=== PATIENT | female | born 1965 | race Caucasian/White ===

== ENCOUNTER → 2017-10-22 15:58 | Outpatient (CLI) | payer OTHER, SELFPAY ==
--- NOTE | 2017-10-22 16:01 | DI.RAD.S_ITS ---
PROCEDURE: XR WRIST LT MIN 3V INDICATIONS: left wrist pain - radial side TECHNIQUE: 4 views of the wrist were acquired. COMPARISON: None. FINDINGS: Bones: There is lucency seen extending through the proximal and mid pole of the scaphoid and scaphoid fracture cannot be excluded. A small erosion is seen along the ulnar aspect of the lunate. Mild radiocarpal joint narrowing.. No suspicious bony lesions. Scaphoid view: Possible scaphoid fracture. Soft tissues: No suspicious soft tissue calcifications. IMPRESSION: 1. Lucency extending to the proximal and mid aspect of the scaphoid and scaphoid fracture cannot be excluded. Recommend correlation to point tenderness and if indicated followup examination in 10-14 days could be performed. 2. Bone erosion involving the ulnar aspect of the lunate and inflammatory arthritic change cannot be excluded. Correlate clinically. Dictated by: Segundo MYLES Interpreted: Flaquito Mccrary MD on 10/22/2017 at 17:17 Approved by: Flaquito Mccrary M.D. on 10/23/2017 at 12:24
== END ==
PROVIDERS: Family Provider Physician Assistant; PCP Physician Assistant; Visit Provider Physician Assistant
DX: M25.532 Pain in left wrist (principal)
CPT/HCPCS: 73110

== ENCOUNTER → 2017-10-25 11:54 | Outpatient (CLI) | payer OTHER, SELFPAY ==
[2017-10-25 12:20] LABS: Add Manual Diff / Slide Review NO; Basophils Percent Auto 1.3 % (0-2); Eosinophils Percent Auto 4.6 % (2-4); Hematocrit 33.7 % (36-46); Hemoglobin 10.7 g/dL (12.0-16.0); Lymphocytes Percent Auto 42.6 % (25-40); Mean Corpuscular HGB Conc 31.8 % (30-36); Mean Corpuscular Hemoglobin 18.5 PG (26-34); Mean Corpuscular Volume 58.4 fL (80-100); Monocytes Percent Auto 8.1 % (3-14); Neutrophils Absolute Auto 1700 /uL (3000-5900); Neutrophils Percent Auto 43.4 % (50-75); Platelet Count 245 X10^3/uL (150-400); Red Blood Cell Count 5.77 X10^6/uL (4.0-5.2); Red Cell Distribution Width 15.5 % (11.6-14.8); White Blood Cell Count 3.8 X10^3/uL (4.5-11.0)
[2017-10-25 12:36] LABS: Alanine Aminotransferase 20 IU/L (9-52); Albumin 4.3 g/dL (3.5-5.0); Albumin Globulin Ratio 1.6 (1.0-2.8); Alkaline Phosphatase 56 U/L (38-126); Aspartate Aminotransferase 20 IU/L (14-36); Blood Urea Nitrogen 16 mg/dL (7-17); Calcium 9.7 mg/dL (8.4-10.2); Carbon Dioxide 30 mmol/L (22-32); Chloride 104 mmol/L (98-107); Cholesterol 170 mg/dL (140-199); Estimated Glomerular Filt Rate > 60.0 mL/min (>60); Globulin 2.7 g/dL (1.7-4.1); Glucose 92 mg/dL (70-100); HDL Cholesterol 61 mg/dL (40-60); HEMOLYSIS < 15 (0-50); LDL Cholesterol Calculated 94 mg/dL (<100); Potassium 4.2 mmol/L (3.4-5.1); Sodium 144 mmol/L (137-145); Triglycerides 74 mg/dL (35-150)
[2017-10-25 12:37] LABS: Hypochromasia 1+; Microcytosis 2+
[2017-10-25 13:10] LABS: Ferritin 59.2 ng/mL (11.1-264)
[2017-10-25 13:29] LABS: HEMOLYSIS < 15 (0-50); Iron 86 ug/dL (37-170)
[2017-10-25 13:40] LABS: Percent Iron Saturation 30 % (15-50); Total Iron Binding Capacity 289 ug/dL (265-497); Transferrin 237 mg/dL (206-381)
[2017-10-25 13:50] LABS: Free T3, Triiodothyronine Free 4.81 pg/mL (2.77-5.27); Free T4, Direct Thyroxine 1.32 ng/dL (0.78-2.19); Triiodothryronine T3 Uptake 38.1 % (23.5-40.5)
[2017-10-25 14:03] LABS: Thyroid Stimulating Hormone < 0.02 uIU/mL (0.47-4.68)
[2017-10-29 15:54] LABS: Anti Thyroglobulin Antibody < 1 IU/mL (< 2); Thyroid Peroxidase Antibodies < 1 IU/mL (< 9)
[2017-10-31 15:12] LABS: Triiodothyronine T3 Reverse 20 ng/dL (8-25)
== END ==
PROVIDERS: PCP Physician Assistant; Visit Provider Naturopath
DX: E03.9 Hypothyroidism, unspecified (principal); R53.83 Other fatigue; M25.50 Pain in unspecified joint
CPT/HCPCS: 36415; 80053; 80061; 82728; 83036; 83540; 83550; 84439; 84443; 84479; 84481; 84482; 85025; 86376; 86800

== ENCOUNTER → 2017-10-30 11:14 | Outpatient (CLI) | payer OTHER, SELFPAY ==
--- NOTE | 2017-10-30 11:15 | DI.MRI.S_ITS ---
PROCEDURE: MR WRIST LT WO CON INDICATIONS: Abnormal Xray left wrist; left wrist pain TECHNIQUE: Noncontrast coronal proton density fast spin echo and T2 fast spin echo with fat saturation; coronal 3-D gradient echo, axial T1 spin echo and T2 fast spin echo with fat saturation, sagittal T1 spin echo through the wrist. COMPARISON: [facility], CR, XR WRIST LT MIN 3V, 10/22/2017, 15:41. FINDINGS: Image quality: Excellent. Bones and cartilage: The carpal bones are normally aligned. No bone marrow contusions or fractures. Small intraosseous cyst in lunate is seen. Small sclerotic focus involving proximal scaphoid is also noted with no surrounding marrow edema or periosteal reaction likely represent benign process such as bone island. No evidence for avascular necrosis. Overlying cartilage surfaces appear normal. Carpal ligaments: The scapholunate and lunotriquetral ligaments appear intact. In the absence of intra-articular contrast, the extrinsic carpal ligaments are not well identified. On sagittal images, the pisohamate ligament appears intact. Triangular fibrocartilage complex: The triangular fibrocartilage appears intact. The adjacent meniscal homolog appears normal in the absence of intra-articular contrast. The extensor carpi ulnaris tendon is normal in location and morphology. Tendons and soft tissues: The carpal tunnel structures appear normal, including the median nerve. The ulnar nerve appears normal within Guyon's canal. Examination of extensor tendon shows thickening of extensor pollicis brevis and abductor pollicis longus tendons with surrounding fluid adjacent to radial styloid and the proximal carpal suggestive of tenosynovitis and possible low-grade intrasubstance partial-thickness tear. No full-thickness tendon rupture. Rest of extensor tendons are intact. No soft tissue ganglion cysts. IMPRESSION: 1. No carpal fracture or dislocation. No marrow edema. Possible small bone island in proximal scaphoid. Small intraosseous cyst within the lunate. 2. Tenosynovitis and intrasubstance partial-thickness tear involving extensor pollicis brevis and abductor pollicis longus tendons adjacent to radial styloid and proximal scaphoid. No full-thickness tendon rupture. Rest of the wrist tendons and ligaments are grossly intact. Dictated by: Pino Waldron M.D. on 10/30/2017 at 13:26 Approved by: Pino Waldron M.D. on 10/30/2017 at 17:06
== END ==
PROVIDERS: Family Provider Physician Assistant; PCP Physician Assistant; Visit Provider Physician Assistant
DX: M25.532 Pain in left wrist (principal); M25.432 Effusion, left wrist; R93.7 Abnormal findings on diagnostic imaging of other parts of musculoskeletal system; M85.632 Other cyst of bone, left forearm
CPT/HCPCS: 73221

== ENCOUNTER → 2018-04-15 10:26 | Outpatient (CLI) | payer OTHER, SELFPAY ==
[2018-04-15 11:27] LABS: Hematocrit 32.4 % (36-46); Hemoglobin 10.5 g/dL (12.0-16.0); Mean Corpuscular HGB Conc 32.3 % (30-36); Mean Corpuscular Hemoglobin 18.3 PG (26-34); Mean Corpuscular Volume 56.5 fL (80-100); Platelet Count 245 X10^3/uL (150-400); Red Blood Cell Count 5.72 X10^6/uL (4.0-5.2); Red Cell Distribution Width 17.1 % (11.6-14.8); White Blood Cell Count 4.7 X10^3/uL (4.5-11.0)
[2018-04-15 11:28] LABS: Add Manual Diff / Slide Review YES
[2018-04-15 11:29] LABS: Hemoglobin A1C% w Est Avg Glu 4.8 % (4.0-6.0)
[2018-04-15 11:42] LABS: HEMOLYSIS < 15 (0-50); Iron 89 ug/dL (37-170)
[2018-04-15 11:44] LABS: Alanine Aminotransferase 22 IU/L (9-52); Albumin 4.5 g/dL (3.5-5.0); Albumin Globulin Ratio 1.6 (1.0-2.8); Alkaline Phosphatase 65 U/L (38-126); Aspartate Aminotransferase 27 IU/L (14-36); BUN Creatinine Ratio 18.9 (6-22); Bilirubin Total 1.2 mg/dL (0.2-1.3); Blood Urea Nitrogen 17 mg/dL (7-17); Calcium 9.7 mg/dL (8.4-10.2); Carbon Dioxide 27 mmol/L (22-32); Chloride 103 mmol/L (98-107); Cholesterol 199 mg/dL (140-199); Estimated Glomerular Filt Rate > 60.0 mL/min (>60); Globulin 2.9 g/dL (1.7-4.1); Glucose 91 mg/dL (70-100); HDL Cholesterol 68 mg/dL (40-60); HEMOLYSIS < 15 (0-50); LDL Cholesterol Calculated 117 mg/dL (<100); Potassium 3.5 mmol/L (3.4-5.1); Sodium 140 mmol/L (137-145); Total Protein 7.4 g/dL (6.3-8.2); Triglycerides 69 mg/dL (35-150)
[2018-04-15 11:45] LABS: Vitamin D 25 Hydroxy (D3) 42.9 ng/mL (30.0-100.0)
[2018-04-15 11:47] LABS: High Sensitivity CRP - Cardiac 0.8 mg/L (1.0-3.0)
[2018-04-15 11:52] LABS: Percent Iron Saturation 29 % (15-50); Total Iron Binding Capacity 302 ug/dL (265-497); Transferrin 242 mg/dL (206-381)
[2018-04-15 12:00] LABS: Free T3, Triiodothyronine Free 4.16 pg/mL (2.77-5.27); Free T4, Direct Thyroxine 1.08 ng/dL (0.78-2.19)
[2018-04-15 12:08] LABS: Neutrophils Absolute Manual 2585 /uL (3000-5900); Total Cells Counted 100
[2018-04-15 12:10] LABS: Anisocytosis 1+; Ovalocytes 1+
[2018-04-15 12:13] LABS: Thyroid Stimulating Hormone < 0.02 uIU/mL (0.47-4.68)
[2018-04-15 12:16] LABS: Ferritin 51.5 ng/mL (11.1-264)
[2018-04-16 13:59] LABS: Homocysteine 8.1 umol/L (< 10.4)
[2018-04-16 14:13] LABS: Glucose-6-Phosphate Dehydrogen 20.6 U/g Hgb (7.0-20.5)
[2018-04-17 18:29] LABS: 1 25 Dihydroxy Vitamin D 58 pg/mL (18-72)
== END ==
PROVIDERS: PCP Physician Assistant; Visit Provider Naturopath
DX: R53.83 Other fatigue (principal); B97.89 Other viral agents as the cause of diseases classified elsewhere; E63.9 Nutritional deficiency, unspecified; E34.9 Endocrine disorder, unspecified; R51 Headache
CPT/HCPCS: 36415; 80053; 80061; 82306; 82652; 82728; 82955; 83036; 83090; 83540; 83550; 84439; 84443; 84481; 85025; 86140

== ENCOUNTER 2019-11-29 15:13 | Emergency (ER) | payer OTHER, SELFPAY ==
[2019-11-29] VITALS (11 sets, daily range): BP systolic 94–122; BP diastolic 57–66; PULSE 65–89; RESP 16–18; TEMP 36.9; O2SAT 97–100; BMI 19.7
--- NOTE | 2019-11-29 16:45 | ED_ITS ---
HPI - SOB/Dyspnea <JOHN De León - Last Filed: 11/30/19 00:52> General Chief Complaint: Shortness of Breath/Dyspnea Stated Complaint: feel awful,head ache, nausea, trouble breathing Time Seen by Provider: 11/29/19 16:23 Source: patient Mode of arrival: Wheelchair Limitations: no limitations History of Present Illness HPI Narrative: This is a 54-year-old female, nonsmoker, who has history of hyper and hypothyroidism presents to ED with multiple chief complains she reports has been fatigue and has headache for last several months. Today she additionally has nausea, photophobia, and frontal headache radiating to mid posterior head. Patient felt dyspnea and checked home O2 pulse ox and he was reading as 70s in room air but usually it runs 99-100%. She denies history of frequent migraine headache but once her life. She thought she was having heart attack at home and became very concerned and decided to come to ED for an evaluation and states had chest and back tightness. Patient reports she is under lots of stress and worked greater than 80 hours last week. 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 She reports feels dehydrated. Patient denies fever but reports chills and loose stools. Patient denies sore throat, persistent coughing. Patient denies unusual rashes. She reports was lightheaded and she often has periumbilical discomfort which has not been changed. She contributes her abdominal pain to depends on what she eats. LMP several years ago and in menopausal state. Offered pain medication such as Toradol and antinausea medication and Protonix but declines medications except IV fluids at this time. Related Data Previous Rx's Medication Instructions Recorded thyroid (pork) 60 mg tablet See Rx Instructions .ROUTE 04/08/19 .COMPLEX #60 tablet Allergies Allergy/AdvReac Type Severity Reaction Status Date / Time Penicillins [PENICILLINS] Allergy Unknown my mother Verified 04/09/19 13:36 said I had convulsions when I was a baby. Review of Systems <JOHN De León - Last Filed: 11/30/19 00:52> Review of Systems Narrative: General: See HPI HEENT: Denies sinus pain, ear pain, sore throat, difficulty swallowing, (+) dizziness. Respiratory: See HPI Cardiovascular: The HPI Gastrointestinal: Denies (+) nausea, vomiting, (+) periumbilical abdominal pain, (+) loose stools but no diarrhea, constipation, melena. : Denies dysuria, frequency, incontinence, hematuria, urinary retention. Musculoskeletal: Denies weakness, joint pain or bony pain. Skin: Denies rash, skin lesions, or other. Neurologic: Denies weakness, (+) headache, numbness, change in speech, confu noemi, seizures, incoordination. Psychiatric: Reports under increased stress from work. 12-point review of systems is negative except for those stated above. Patient History <JOHN De León - Last Filed: 11/30/19 00:52> Medical History GERD (gastroesophageal reflux disease) (Acute) Hyperthyroidism (Acute) Social History Smoking Status: Never smoker second hand exposure: No alcohol intake: never substance use type: does not use Smoking Status: Never smoker alcohol intake frequency: 0-2 drinks per day Substance Use Type: does not use Exam <JOHN De León - Last Filed: 11/30/19 00:52> Narrative Exam Narrative: GEN: Alert, oriented x 3, fatigue and thin appearing but in no acute distress and nontoxic appearing female appears to be younger than stated age, resting in dark due to photophobia. Head: Normal cephalic, atraumatic. No scalp or temporal tenderness, palpable mass or rash. EYES: Pupils are equal, round, and reactive to light and accommodation. Extraocular muscles are intact bilaterally. There is no subconjunctival hemorrhage, exudate and sclera non-icteric. ENT: Hearing grossly intact. Nose without bleeding, purulent discharge or deviation. Facial sinuses nontender to palpate. Mucous membrane dry, no mucosal lesion. Throat without erythema, tonsillar hypertrophy or exudate. Uvula in midline, airway patent. Neck: Trachea in midline. No JVD, non-tender without lymphadenopathy. No masses or thyroid megaly. Supple and no meningeal signs. CARDIAC: Normal regular rate and rhythm without murmurs, gallops, or rubs. No chest wall tenderness. No peripheral edema, cyanosis or pallor. Capillary refill is less than 2 seconds. RESPIRATORY: Lungs are clear to auscultate bilaterally. No cough, wheezes, rales, or rhonchi. No stridor, respiratory distress, increase work of breathing, or accessary muscle used. ABD: Abdomen soft and non-distended with mild tenderness to palpate in periumbilical region. No guarding or rebound tenderness to palpate. Bowel sounds are normal in all 4 quadrants. There is no palpable masses or organo megaly. EXT: Full painless ROM of all extremities with no loss of sensation, strength, effusion or edema. SKIN: Warm, dry, normal color for patient. No erythema, lesions or rash over visible areas. BACK: Nontender without deformity or crepitance. No flank tenderness. NEUROLOGICAL: Alert and oriented to place, time and person. Sensation and motor function intact bilaterally. No facial droops, dysphasia. PSYCHIATRIC: Good judgement and reason, without hallucinations, abnormal affect or abnormal behaviors during the examination. Patient is not suicidal. Initial Vital Signs Initial Vital Signs: Vital Signs Temperature 98.4 F 11/29/19 15:25 Pulse Rate 73 11/29/19 15:25 Respiratory Rate 16 11/29/19 15:25 Blood Pressure 122/62 11/29/19 15:25 Pulse Oximetry 100 11/29/19 15:25 <Annika Slade DO - Last Filed: 12/05/19 17:27> Initial Vital Signs Initial Vital Signs: Vital Signs Temperature 98.4 F 11/29/19 15:25 Pulse Rate 73 11/29/19 15:25 Respiratory Rate 16 11/29/19 15:25 Blood Pressure 122/62 11/29/19 15:25 Pulse Oximetry 100 11/29/19 15:25 Scores <[facility] - Last Filed: 11/30/19 00:52> GCS [place] coma scale eye opening: Spontaneous [place] coma scale verbal response: Orientated Emilie coma scale motor response: Obey commands [place] coma scale total score: 15 HEART Score Heart Score history: Slightly Suspicious Heart Score EKG: Normal Heart Score Age: 45-64 years old Heart Score risk factors: No known risk factors Heart Score troponin: < or = to normal limit Heart Score Total: 1 qSOFA Altered Mental Status (GCS <15): No Respiratory rate greater than/equal to 22: No Systolic blood pressure less than or equal to 100: No qSOFA Total: 0 0-1 Not High Risk 1-3 High risk Wells' Criteria for PE Clinical signs and symptoms of DVT: No PE is #1 Dx or equally likely: No Heart rate > 100: No Immobilization at least 3 days or surg in previous 4 weeks: No History of PE or DVT: No Hemoptysis: No Malignancy w/Treatment within 6 months or palliative: No Wells' PE Score total: 0 Course <Mike Ritika-JOHN Byers - Last Filed: 11/30/19 00:52> Orders Ordered: Discontinued Medications Acetaminophen (Tylenol) 650 mg PO NOW ONE Stop: 11/29/19 18:29 Last Admin: 11/29/19 18:32 Dose: 650 mg Documented by: NELY Sodium Chloride (Normal Saline 0.9%) 1,000 mls @ 1,000 mls/hr IV BOLUS ONE Stop: 11/29/19 17:41 Last Infusion: 11/29/19 18:02 Dose: 0 mls/hr Documented by: Admin: 11/29/19 17:02 Dose: 1,000 mls/hr Documented by: NELY Ketorolac Tromethamine (Toradol) 15 mg IV NOW ONE Stop: 11/29/19 18:29 Last Admin: 11/29/19 18:33 Dose: 15 mg Documented by: NELY Reevaluation(s) Reevaluation #1: Patient reports headache has improved mildly. Informed patient on normal kidney function test. Offered patient with medications for headaches and she accepted. Time: 18:25 Vital Signs Vital signs: Vital Signs - 8 hr 11/29/19 16:30 11/29/19 17:00 11/29/19 17:30 Pulse Rate 74 67 65 Respiratory Rate Blood Pressure 94/57 L 102/61 115/63 Pulse Oximetry 98 99 100 11/29/19 18:00 11/29/19 18:27 11/29/19 19:21 Pulse Rate 69 89 Respiratory Rate Blood Pressure 105/58 L 108/64 Pulse Oximetry 99 99 11/29/19 19:51 11/29/19 20:08 Pulse Rate 71 83 Respiratory Rate 18 17 Blood Pressure 108/64 117/66 Pulse Oximetry 100 99 <Annika Slade DO - Last Filed: 12/05/19 17:27> Orders Ordered: Discontinued Medications Acetaminophen (Tylenol) 650 mg PO NOW ONE Stop: 11/29/19 18:29 Last Admin: 11/29/19 18:32 Dose: 650 mg Documented by: NELY Sodium Chloride (Normal Saline 0.9%) 1,000 mls @ 1,000 mls/hr IV BOLUS ONE Stop: 11/29/19 17:41 Last Infusion: 11/29/19 18:02 Dose: 0 mls/hr Documented by: Admin: 11/29/19 17:02 Dose: 1,000 mls/hr Documented by: NELY Ketorolac Tromethamine (Toradol) 15 mg IV NOW ONE Stop: 11/29/19 18:29 Last Admin: 11/29/19 18:33 Dose: 15 mg Documented by: NELY Vital Signs Vital signs: Vital Signs - 8 hr 11/29/19 16:30 11/29/19 17:00 11/29/19 17:30 Pulse Rate 74 67 65 Respiratory Rate Blood Pressure 94/57 L 102/61 115/63 Pulse Oximetry 98 99 100 11/29/19 18:00 11/29/19 18:27 11/29/19 19:21 Pulse Rate 69 89 Respiratory Rate Blood Pressure 105/58 L 108/64 Pulse Oximetry 99 99 11/29/19 19:51 11/29/19 20:08 Pulse Rate 71 83 Respiratory Rate 18 17 Blood Pressure 108/64 117/66 Pulse Oximetry 100 99 MDM - SOB/Dyspnea <Mike JOHN Cardoza - Last Filed: 11/30/19 00:52> Differential Diagnosis Differential diagnosis: Likely pulmonary embolism and other (Covid, pneumonia, pneumothorax, electrolyte imbalance, hyper/hypothyroidism, dehydration, anemia, GERD, cholecystitis, pancreatitis, UTI, meningitis, migraine headache) Medical Records Attestation: I reviewed the patient's medical records. Lab Data Attestation: I reviewed the patient's lab results. Result diagrams: 11/29/19 15:40 11/29/19 15:40 Labs: Lab Results 11/29/19 11/29/19 11/29/19 Range/Units 15:40 15:40 15:40 WBC 8.6 (4.5-11.0) X10^3/uL RBC 5.61 H (4.0-5.2) X10^6/uL Hgb 10.4 L (12.0-16.0) g/dL Hct 33.3 L (36-46) % MCV 59.3 L (80-100) fL MCH 18.6 L (26-34) PG MCHC 31.3 (30-36) % RDW 16.1 H (11.6-14.8) % Plt Count 269 (150-400) X10^3/uL Neut % (Auto) 76.0 H (50-75) % Lymph % (Auto) 17.1 L (25-40) % Alpine % (Auto) 5.8 (3-14) % Eos % (Auto) 0.8 L (2-4) % Baso % (Auto) 0.3 (0-2) % Neut # (Auto) 6500 (3191-9340) /uL Lymph # (Auto) 1500 (4776-6508) /uL Alpine # (Auto) 500 (0-900) /uL Eos # (Auto) 100 (0-450) /uL Baso # (Auto) 0 (0-100) /uL RBC Morphology See below Anisocytosis 1+ H Microcytosis 2+ H D-Dimer < 200 (<230) ng/mL Sodium 137 (137-145) mmol/L Potassium 3.8 (3.4-5.1) mmol/L Chloride 104 (98-107) mmol/L Carbon Dioxide 25 (22-32) mmol/L BUN 21 H (7-17) mg/dL Creatinine 0.83 (0.52-1.04) mg/dL Estimated GFR > 60.0 (>60) mL/min BUN/Creatinine Ratio 25.3 H (6-22) Glucose 99 (70-100) mg/dL Calcium 9.5 (8.4-10.2) mg/dL Phosphorus 2.7 (2.5-4.5) mg/dL Magnesium 2.1 (1.6-2.3) mg/dL Total Bilirubin 1.6 H (0.2-1.3) mg/dL AST 36 (14-36) IU/L ALT 16 (<35) IU/L Alkaline Phosphatase 73 (38-126) U/L Total Creatine Kinase 119 (30-135) U/L CK-MB (CK-2) 0.74 (<2.37) ng/mL CK-MB (CK-2) Rel Index 0.6 L (1.5-5.0) % Troponin I < 0.012 (0.01-0.034) ng/mL Total Protein 7.4 (6.3-8.2) g/dL Albumin 4.4 (3.5-5.0) g/dL Globulin 3.0 (1.7-4.1) g/dL Albumin/Globulin Ratio 1.5 (1.0-2.8) Lipase 460 H (23-300) U/L TSH (0.47-4.68) uIU/mL Free T4 (0.78-2.19) ng/dL COVID-19 PCR (Negative) 11/29/19 11/29/19 Range/Units 15:40 17:32 WBC (4.5-11.0) X10^3/uL RBC (4.0-5.2) X10^6/uL Hgb (12.0-16.0) g/dL Hct (36-46) % MCV (80-100) fL MCH (26-34) PG MCHC (30-36) % RDW (11.6-14.8) % Plt Count (150-400) X10^3/uL Neut % (Auto) (50-75) % Lymph % (Auto) (25-40) % Alpine % (Auto) (3-14) % Eos % (Auto) (2-4) % Baso % (Auto) (0-2) % Neut # (Auto) (9940-9248) /uL Lymph # (Auto) (5147-7843) /uL Alpine # (Auto) (0-900) /uL Eos # (Auto) (0-450) /uL Baso # (Auto) (0-100) /uL RBC Morphology Anisocytosis Microcytosis D-Dimer (<230) ng/mL Sodium (137-145) mmol/L Potassium (3.4-5.1) mmol/L Chloride (98-107) mmol/L Carbon Dioxide (22-32) mmol/L BUN (7-17) mg/dL Creatinine (0.52-1.04) mg/dL Estimated GFR (>60) mL/min BUN/Creatinine Ratio (6-22) Glucose (70-100) mg/dL Calcium (8.4-10.2) mg/dL Phosphorus (2.5-4.5) mg/dL Magnesium (1.6-2.3) mg/dL Total Bilirubin (0.2-1.3) mg/dL AST (14-36) IU/L ALT (<35) IU/L Alkaline Phosphatase (38-126) U/L Total Creatine Kinase (30-135) U/L CK-MB (CK-2) (<2.37) ng/mL CK-MB (CK-2) Rel Index (1.5-5.0) % Troponin I (0.01-0.034) ng/mL Total Protein (6.3-8.2) g/dL Albumin (3.5-5.0) g/dL Globulin (1.7-4.1) g/dL Albumin/Globulin Ratio (1.0-2.8) Lipase (23-300) U/L TSH 0.022 L (0.47-4.68) uIU/mL Free T4 0.99 (0.78-2.19) ng/dL COVID-19 PCR Negative (Negative) Imaging Data US - abdomen: Radiologist's Impression: [place] [address] Ultrasound Report Signed Patient: Crow Prasad [facility]#: [id number] : 1965Acct:[id number] Age/Sex: 54 / FDate of Service: 11/29/19 Loc: ED Accession Number: [id number] Procedure: US abdomen limited Ordering Provider: Mike Cardoza PROCEDURE: US ABDOMEN LIMITED INDICATIONS: PAIN TECHNIQUE: Real-time scanning was performed of the abdominal and retroperitoneal organs, with image documentation. COMPARISON: None. FINDINGS: Liver: Liver is normal in size and homogeneous in echotexture. Gallbladder: The gallbladder wall measures 1.6 mm in diameter. No stones, sludge, pericholecystic fluid, or sonographic Pride sign. Biliary ducts: Intrahepatic bile ducts are non-dilated. Extrahepatic bile duct caliber measures 3.9 mm. Normal is 6-7 mm or less in diameter, or 10 mm or less post-cholecystectomy. Pancreas: Visualized portions of the pancreas are sonographically normal. IMPRESSION: 1. No cholelithiasis or findings to suggest choledocholithiasis or acute cholecystitis. 2. Nonvisualization of the appendix (per provider request). Dictated by: Jil Hernández M.D. on 11/29/2019 at 19:27 Approved by: Jil Hernández M.D. on 11/29/2019 at 19:29 ECG Data Attestation: I personally reviewed and interpreted this ECG as follows: Prior ECG tracings: available for review Interpretation: Sinus rhythm rate at 66. Normal axis. UT interval 160, QRS duration 88, QT/QTC 413/[address] changes. No acute ST changes. No significant changes from previous EKG. MDM Narrative Medical decision making narrative: This is a 54-year-old female who presents to ED with multiple chief complains including dyspnea, back and chest tightness, headaches, fatigue, abdmonial pain, chills, diarrhea, dizziness. Patient reports she is in menopausal state. Patient has recent increase in stress at work and has been working more than 80 hours a week. Patient she has small pulse ox monitor at home and it was reading around 70% when she has dyspnea. She does not have known pulmonary disease. Heart score is 1. Wells criteria for PE score is 0. EKG shows sinus rhythm rate at [address] changes. Patient's O2 said in ED is from 98-100% at rest. Patient is afebrile with normotensive and respiration rate. Patient initially declined Covid swab per primary RN. She is stating she can get this test later time at the respiratory clinic or drive through testing center but agreed to testing after the extensive explanation that given patient had some concerning Covid symptoms. Covid test was negative today. There is no leukocytosis. Patient has anemia of H&H of 10.4/33.3. Patient reports she has thalassemia anemia and today's H&H is near her baseline when compared to previous CBC results. D-dimer was obtained and he was negative. Patient had slightly elevated BUN of 21 with BUN and creatinine ratio of 25.3 indicating mild dehydration. Cardiac enzymes were negative. Patient had mildly elevated lipase of 460 with total bilirubin of 1.6. Otherwise, normal liver function test and electrolytes. Patient is taking [place] Thyroid medication for hypothyroidism. Today's TSH is 0.02 with normal FT4 indicating clinical hyperthyroidism. With mildly elevated lipase and total bilirubin with frequent periumbilical abdominal pain, abdominal ultrasound was ordered and obtained. Ultrasound test shows no cholelithiasis or acute cholecystitis with normal appearing pancreas. Patient offered pain medication and nausea medication but declined stating nausea mostly resolved at this time. Stating she does not like to take medications and she is concerned for this medication affecting her kidney. After normal kidney function test was reviewed, offered Tylenol and IV Toradol for not completely resolved headache which she agreed to take. Patient reports her headache had improved moderately. I discussed today's test findings with patient. Discussed consider for meningitis but this has to be confirmed with lumbar puncture. Patient does not show leukocytosis, nontoxic appearing, afebrile and it is not likely patient has meningitis although patient has some cervical muscle tenderness with headache. Home O2 monitor likely not correctly read earlier. Patient continued to show stable vital signs during ED stay. Patient advised to take [id number] Tylenol and or Motrin as needed for discomfort. Advised to hydrate well and to follow-up with primary care physician for further evaluation and return precautions were discussed with patient. Patient verbalized understanding in agreement with treatment plan. <Annkia Slade, DO - Last Filed: 12/05/19 17:27> Lab Data Labs: Lab Results 11/29/19 11/29/19 11/29/19 Range/Units 15:40 15:40 15:40 WBC 8.6 (4.5-11.0) X10^3/uL RBC 5.61 H (4.0-5.2) X10^6/uL Hgb 10.4 L (12.0-16.0) g/dL Hct 33.3 L (36-46) % MCV 59.3 L (80-100) fL MCH 18.6 L (26-34) PG MCHC 31.3 (30-36) % RDW 16.1 H (11.6-14.8) % Plt Count 269 (150-400) X10^3/uL Neut % (Auto) 76.0 H (50-75) % Lymph % (Auto) 17.1 L (25-40) % Alpine % (Auto) 5.8 (3-14) % Eos % (Auto) 0.8 L (2-4) % Baso % (Auto) 0.3 (0-2) % Neut # (Auto) 6500 (9116-0585) /uL Lymph # (Auto) 1500 (4135-6092) /uL Alpine # (Auto) 500 (0-900) /uL Eos # (Auto) 100 (0-450) /uL Baso # (Auto) 0 (0-100) /uL RBC Morphology See below Anisocytosis 1+ H Microcytosis 2+ H D-Dimer < 200 (<230) ng/mL Sodium 137 (137-145) mmol/L Potassium 3.8 (3.4-5.1) mmol/L Chloride 104 (98-107) mmol/L Carbon Dioxide 25 (22-32) mmol/L BUN 21 H (7-17) mg/dL Creatinine 0.83 (0.52-1.04) mg/dL Estimated GFR > 60.0 (>60) mL/min BUN/Creatinine Ratio 25.3 H (6-22) Glucose 99 (70-100) mg/dL Calcium 9.5 (8.4-10.2) mg/dL Phosphorus 2.7 (2.5-4.5) mg/dL Magnesium 2.1 (1.6-2.3) mg/dL Total Bilirubin 1.6 H (0.2-1.3) mg/dL AST 36 (14-36) IU/L ALT 16 (<35) IU/L Alkaline Phosphatase 73 (38-126) U/L Total Creatine Kinase 119 (30-135) U/L CK-MB (CK-2) 0.74 (<2.37) ng/mL CK-MB (CK-2) Rel Index 0.6 L (1.5-5.0) % Troponin I < 0.012 (0.01-0.034) ng/mL Total Protein 7.4 (6.3-8.2) g/dL Albumin 4.4 (3.5-5.0) g/dL Globulin 3.0 (1.7-4.1) g/dL Albumin/Globulin Ratio 1.5 (1.0-2.8) Lipase 460 H (23-300) U/L TSH (0.47-4.68) uIU/mL Free T4 (0.78-2.19) ng/dL COVID-19 PCR (Negative) 10/11/20 10/11/20 Range/Units 15:40 17:32 WBC (4.5-11.0) X10^3/uL RBC (4.0-5.2) X10^6/uL Hgb (12.0-16.0) g/dL Hct (36-46) % MCV (80-100) fL MCH (26-34) PG MCHC (30-36) % RDW (11.6-14.8) % Plt Count (150-400) X10^3/uL Neut % (Auto) (50-75) % Lymph % (Auto) (25-40) % [place] % (Auto) (3-14) % Eos % (Auto) (2-4) % Baso % (Auto) (0-2) % Neut # (Auto) (4636-5814) /uL Lymph # (Auto) (7232-1983) /uL Alpine # (Auto) (0-900) /uL Eos # (Auto) (0-450) /uL Baso # (Auto) (0-100) /uL RBC Morphology Anisocytosis Microcytosis D-Dimer (<230) ng/mL Sodium (137-145) mmol/L Potassium (3.4-5.1) mmol/L Chloride (98-107) mmol/L Carbon Dioxide (22-32) mmol/L BUN (7-17) mg/dL Creatinine (0.52-1.04) mg/dL Estimated GFR (>60) mL/min BUN/Creatinine Ratio (6-22) Glucose (70-100) mg/dL Calcium (8.4-10.2) mg/dL Phosphorus (2.5-4.5) mg/dL Magnesium (1.6-2.3) mg/dL Total Bilirubin (0.2-1.3) mg/dL AST (14-36) IU/L ALT (<35) IU/L Alkaline Phosphatase (38-126) U/L Total Creatine Kinase (30-135) U/L CK-MB (CK-2) (<2.37) ng/mL CK-MB (CK-2) Rel Index (1.5-5.0) % Troponin I (0.01-0.034) ng/mL Total Protein (6.3-8.2) g/dL Albumin (3.5-5.0) g/dL Globulin (1.7-4.1) g/dL Albumin/Globulin Ratio (1.0-2.8) Lipase (23-300) U/L TSH 0.022 L (0.47-4.68) uIU/mL Free T4 0.99 (0.78-2.19) ng/dL COVID-19 PCR Negative (Negative) Discharge Plan Departure Patient Disposition: Home Clinical Impression: Mild dehydration Headache Qualifiers: Headache type: unspecified Headache chronicity pattern: unspecified pattern Intractability: not intractable Qualified Code(s): R51.9 - Headache, unspecified Anemia Qualifiers: Anemia type: unspecified type Qualified Code(s): D64.9 - Anemia, unspecified Discharge Date/Time: 11/29/19 20:08 Instructions: DI for Anemia of Chronic Disease, DI for Headache Activity Restrictions/Additional Instructions: You have been diagnosed with [headache, chronic anemia, mild dehydration, mildly elevated lipase. Covid test was negative. Slightly decreased TSH today but normal FT4 level. Cardiac enzymes were negative. EKG looked good. D dimer, screening test for pulmonary embolism was negative. Ultrasound on stomach does not show acute findings. Urine test shows no signs of infection. Your headache and feeling poorly likely related to mild dehydration and increase stress at work. You were treated with IV fluid, Tylenol and Toradol in ED. ]. What to do: *Take your medications as directed. *Follow up with your primary care provider in 2-3 days, call for an appointment. Let them know you were seen in the ED and that we asked you to be seen in follow up. *Return to ED if you have any new, worsening, or concerning symptoms, such as [different or worsening chest pain, breathing difficulty, unable to tolerate fluids, high fever, or any acute concerns]. Prescriptions: No Action thyroid (pork) [[place] Thyroid] 60 mg tablet See Rx Instructions .ROUTE .COMPLEX Qty: 60 RF: 0 Referrals: Jose Pineda ARNP [Primary Care Provider] - <Annika Slade DO - Last Filed: 12/05/19 17:27> Cosign ED Attending Elinaature Attestation: I was immediately available in the department for consultation. This documentation has been reviewed and I agree with assessment and plan. Supervised by Annika Slade DO
[2019-11-29 16:51] LABS: Add Manual Diff / Slide Review NO; Basophils Absolute Auto 0 /uL (0-100); Basophils Percent Auto 0.3 % (0-2); Eosinophils Absolute Auto 100 /uL (0-450); Eosinophils Percent Auto 0.8 % (2-4); Hematocrit 33.3 % (36-46); Hemoglobin 10.4 g/dL (12.0-16.0); Lymphocytes Absolute Auto 1500 /uL (1100-4500); Lymphocytes Percent Auto 17.1 % (25-40); Mean Corpuscular HGB Conc 31.3 % (30-36); Mean Corpuscular Hemoglobin 18.6 PG (26-34); Mean Corpuscular Volume 59.3 fL (80-100); Monocytes Absolute Auto 500 /uL (0-900); Monocytes Percent Auto 5.8 % (3-14); Neutrophils Absolute Auto 6500 /uL (1500-7000); Platelet Count 269 X10^3/uL (150-400); Red Blood Cell Count 5.61 X10^6/uL (4.0-5.2); Red Cell Distribution Width 16.1 % (11.6-14.8); White Blood Cell Count 8.6 X10^3/uL (4.5-11.0)
[2019-11-29 16:56] LABS: Alanine Aminotransferase 16 IU/L (<35); Albumin 4.4 g/dL (3.5-5.0); Albumin Globulin Ratio 1.5 (1.0-2.8); Alkaline Phosphatase 73 U/L (38-126); Aspartate Aminotransferase 36 IU/L (14-36); BUN Creatinine Ratio 25.3 (6-22); Bilirubin Total 1.6 mg/dL (0.2-1.3); Blood Urea Nitrogen 21 mg/dL (7-17); Calcium 9.5 mg/dL (8.4-10.2); Carbon Dioxide 25 mmol/L (22-32); Chloride 104 mmol/L (98-107); Creatine Kinase 119 U/L (30-135); Estimated Glomerular Filt Rate > 60.0 mL/min (>60); Glucose 99 mg/dL (70-100); HEMOLYSIS < 15 (0-50); Lipase 460 U/L (23-300); Magnesium 2.1 mg/dL (1.6-2.3); Phosphorous 2.7 mg/dL (2.5-4.5); Potassium 3.8 mmol/L (3.4-5.1); Sodium 137 mmol/L (137-145); Total Protein 7.4 g/dL (6.3-8.2)
[2019-11-29 16:58] LABS: D Dimer < 200 ng/mL (<230)
[2019-11-29] MEDS: SODIUM CHLORIDE 0.9% 1,000 ML 1000 ML IV (17:02)
[2019-11-29 17:08] LABS: Anisocytosis 1+; Troponin I < 0.012 ng/mL (0.01-0.034)
[2019-11-29 17:09] LABS: Microcytosis 2+
[2019-11-29 17:11] LABS: CKMB % Relative Index 0.6 % (1.5-5.0); Creatine Kinase MB 0.74 ng/mL (<2.37)
--- NOTE | 2019-11-29 17:11 | DI.US.S_ITS ---
PROCEDURE: US ABDOMEN LIMITED INDICATIONS: PAIN TECHNIQUE: Real-time scanning was performed of the abdominal and retroperitoneal organs, with image documentation. COMPARISON: None. FINDINGS: Liver: Liver is normal in size and homogeneous in echotexture. Gallbladder: The gallbladder wall measures 1.6 mm in diameter. No stones, sludge, pericholecystic fluid, or sonographic Pride sign. Biliary ducts: Intrahepatic bile ducts are non-dilated. Extrahepatic bile duct caliber measures 3.9 mm. Normal is 6-7 mm or less in diameter, or 10 mm or less post-cholecystectomy. Pancreas: Visualized portions of the pancreas are sonographically normal. IMPRESSION: 1. No cholelithiasis or findings to suggest choledocholithiasis or acute cholecystitis. 2. Nonvisualization of the appendix (per provider request). Dictated by: Jli Hernández M.D. on 11/29/2019 at 19:27 Approved by: Jil Hernández M.D. on 11/29/2019 at 19:29
[2019-11-29 17:18] LABS: Free T4, Direct Thyroxine 0.99 ng/dL (0.78-2.19)
[2019-11-29 17:32] LABS: Thyroid Stimulating Hormone 0.022 uIU/mL (0.47-4.68)
[2019-11-29 17:49] LABS: COVID19 -Nasal RAPID Negative (Negative)
[2019-11-29] MEDS: ACETAMINOPHEN 325 MG TABLET 650 MG PO (18:32)
[2019-11-29] MEDS: KETOROLAC 60 MG/2 ML VIAL 15 MG IV (18:33)
== END 2019-11-29 20:08 | disposition home or self-care (01) ==
PROVIDERS: Emergency Provider Nurse Practitioner Family; PCP Nurse Practitioner Family
DX: E86.0 Dehydration (principal); R51.9 Headache, unspecified; D64.9 Anemia, unspecified; R06.00 Dyspnea, unspecified; R07.9 Chest pain, unspecified; M54.9 Dorsalgia, unspecified; R19.7 Diarrhea, unspecified; R79.89 Other specified abnormal findings of blood chemistry
CPT/HCPCS: 36415; 76705; 80053; 82550; 82553; 83690; 83735; 84100; 84439; 84443; 84484; 85025; 85379; 87635; 93005; 96361; 96374; 99284; J1885

== ENCOUNTER 2021-07-01 20:20 | Emergency (ER) | payer OTHER, SELFPAY ==
[2021-07-01 20:30] VITALS: BP 143/69; PULSE 74; RESP 17; TEMP 36.8; O2SAT 100; BMI 19.7
[2021-07-01] MEDS: LIDO 1%/SOD BICARB 8.4% (10ML) 10 ML SYRINGE INJ (20:50)
--- NOTE | 2021-07-02 02:37 | ED.WOUNDLAC ---
HPI - Wound/Laceration General Chief Complaint: Wound/Laceration Stated Complaint: Cat scratch Time Seen by Provider: 07/01/21 20:28 Source: patient Mode of arrival: Ambulatory History of Present Illness HPI narrative: 56-year-old female nonsmoker with a history of Kadie's presents with a laceration to her left upper lip just prior to arrival. She was handling a cat that reached up and scratched her, she is certain it was not a bite, which resulted in a laceration as stated. She denies other injury and is otherwise well and free of complaint. She states that she has been dealing with some stomach issues immune highly prefer not to start antibiotics unless, or until needed if at all possible. Additionally, she wishes to avoid a tetanus shot, she understands that the this is a low risk injury tetanus is a highly refill infection, she understands that she is 72 hours from the time of injury to change her mind if she should. Related Data Previous Rx's Medication Instructions Recorded thyroid (pork) 60 mg tablet See Rx Instructions .ROUTE 04/08/19 ([place] Thyroid) .COMPLEX #60 tablet azithromycin 250 mg tablet See Rx Instructions .ROUTE 07/01/21 .COMPLEX #6 tab Allergies Allergy/AdvReac Type Severity Reaction Status Date / Time Penicillins [PENICILLINS] Allergy Unknown my mother Verified 04/09/19 13:36 said I had convulsions when I was a baby. Review of Systems Review of Systems Narrative: GENERAL: Denies chills, fatigue, malaise, fever, sweats. HEENT: Denies sinus pain, ear pain, sore throat, difficulty swallowing, dizziness. RESPIRATORY: Denies dyspnea, cough, wheezing, hemoptysis, sputum. CARDIOVASCULAR: Denies chest pain, palpitations, orthopnea, edema, GASTROINTESTINAL: Denies nausea, vomiting, abdominal pain, diarrhea, constipation, melena. : Denies dysuria, frequency, incontinence, hematuria, urinary retention. MUSCULOSKELETAL: denies weakness, joint pain, or bony pain SKIN: See HPI NEUROLOGIC: Denies weakness, headache, numbness, change in speech, confusion, seizures, incoordination. PSYCHIATRIC: No concerning psychosocial issues. 12 point review of systems is negative except for those stated above Patient History Medical History GERD (gastroesophageal reflux disease) Hyperthyroidism Social History Smoking Status: Never smoker second hand exposure: No alcohol intake: never substance use type: does not use Smoking Status: Never smoker alcohol intake frequency: 0-2 drinks per day Substance Use Type: does not use Exam Narrative Exam Narrative: GEN: AOx3 and in mild distress EYES: Pupils are equal, round, and reactive to light and accommodation. Extraoccular muscles are intact bilaterally. There is no subconjunctival hemorrhage or exudate. FACE: 1cm linear, superficial laceration of left upper lip. Not through and through and does not cross the vermilion border, vertically oriented CHEST: Lungs are clear to auscultation bilaterally and free of wheezes, rales, or rhonchi. Heart rate is regular rhythm, there are no murmurs, clicks, rubs, or gallops. There is no chest wall tenderness. ABD: Abdomen is soft and nontender. There is no guarding or rebound. Bowel sounds are normal in all 4 quadrants. There is no mass or organomegaly. EXT: Full painless ROM of all extremities with no loss of sensation or strength. SKIN: Warm, pink, and dry. No erythema or rash Initial Vital Signs Initial Vital Signs: Vital Signs Temperature 98.2 F 07/01/21 20:30 Pulse Rate 74 07/01/21 20:30 Respiratory Rate 17 07/01/21 20:30 Blood Pressure 143/69 H 07/01/21 20:30 Pulse Oximetry 100 07/01/21 20:30 Procedures Laceration Repair Laceration 1: Site: lip Side (If applicable): left Size (cm): 1.0 Description: linear (vertically oriented) Depth: simple, single layer Pre-repair: wound explored and cleansed with chlorhexadine Skin layer closed with: nylon Skin layer suture size: 6-0 Number of sutures: 2 Technique: simple, interrupted Nerve Block Nerve Block 1: Time out performed: Yes Local Anesthetic: lidocaine 1% and with bicarb Amount of anesthesia used (mL): 4 Side: left Intraoral Nerve Block: infraorbital Procedure Successful: Yes Patient Tolerated Procedure: Well Complications: none Course Orders Ordered: Discontinued Medications Lidocaine/Sodium Bicarbonate (Lido 1%/Sod Bicarb 8.4% (10ml) 10 Ml Syringe) 10 ml INJ NOW ONE Stop: 07/01/21 20:32 Last Admin: 07/01/21 20:50 Dose: 10 ml Documented by: JESUS Vital Signs Vital signs: Vital Signs - 8 hr 07/01/21 20:30 Temperature 98.2 F Pulse Rate 74 Respiratory Rate 17 Blood Pressure 143/69 H Pulse Oximetry 100 Discharge Plan Departure Patient Disposition: Home Clinical Impression: Laceration of face Instructions: Cat Scratch Fever, DI for Laceration Repair Activity Restrictions/Additional Instructions: *You have been diagnosed with [facial laceration from cat scratch *What to do: *Please continue to take your regular medications as directed. [ ] New medication prescriptions sent to your pharmacy: [ ] [x ] New medication written as a paper prescription [ ] No new medications given * Please keep the wound clean and dry to the best of your ability. Please monitor for signs of infection such as redness to the skin or increasing pain. Have the sutures/ping removed by your doctor in about 7 days. If you are unable to get into your doctor, we would be happy to remove the sutures/ping in that same timeframe. *If you do not have a primary care provider please contact the [facility] Resource line at [phone]. They will ask some questions about your medical history and help get you set up with a doctor in the community. *Return to Emergency Department if you should have any new, worsening or concerning symptoms, such as [fever greater than 101 F, shaking chills, worsening pain, persistent vomiting or other bothersome symptoms] Prescriptions: New azithromycin 250 mg tablet See Rx Instructions .ROUTE .COMPLEX Qty: 6 0RF Rx Instructions: For 250 mg dose pack: take 500 mg today (day 1), then 250 mg for 4 days (days 2-5) No Action thyroid (pork) [[place] Thyroid] 60 mg tablet See Rx Instructions .ROUTE .COMPLEX Qty: 60 0RF Dose Instruction: TAKE 2 TABLETS BY MOUTH EVERY DAY (THIS IS CHANGE IN DOSE) Rx Instructions: TAKE 2 TABLETS BY MOUTH EVERY DAY Referrals: Miscellaneous,Doctor, MD [Primary Care Provider] -
== END 2021-07-01 21:37 | disposition home or self-care (01) ==
PROVIDERS: Emergency Provider Emergency Medicine
DX: S01.511A Laceration without foreign body of lip, initial encounter (principal); W55.03XA Scratched by cat, initial encounter; Y99.0 Civilian activity done for income or pay
CPT/HCPCS: 12011; 64450; 99282; 99283

== ENCOUNTER 2021-07-13 11:06 | Emergency (ER) | payer OTHER, SELFPAY ==
[2021-07-13 11:22] VITALS: PULSE 64; RESP 20; TEMP 36.7; O2SAT 99; BMI 19.7
--- NOTE | 2021-07-13 11:42 | PC.NURSE ---
Dr. Slade will evaluate.
--- NOTE | 2021-07-13 11:50 | ED_ITS ---
HPI - Recheck/Abnormal Lab/Rx General Chief Complaint: Recheck/Abnormal Lab/Rx Stated Complaint: Needs stitches out Time Seen by Provider: 07/13/21 11:45 Source: patient Mode of arrival: Family Vehicle Limitations: no limitations History of Present Illness HPI narrative: This is a 56-year-old female who had sutures placed in the past week she arrives to have suture removal. Related Data Previous Rx's Medication Instructions Recorded thyroid (pork) 60 mg tablet See Rx Instructions .ROUTE 04/08/19 ([place] Thyroid) .COMPLEX #60 tablet azithromycin 250 mg tablet See Rx Instructions .ROUTE 07/01/21 .COMPLEX #6 tab Allergies Allergy/AdvReac Type Severity Reaction Status Date / Time Penicillins [PENICILLINS] Allergy Unknown my mother Verified 07/13/21 11:26 said I had convulsions when I was a baby. Review of Systems Review of Systems ROS Unobtainable: All systems reviewed & are unremarkable except as noted in HPI and below Patient History Medical History (Updated 07/13/21 @ 11:53 by Annika Slade DO) GERD (gastroesophageal reflux disease) Hyperthyroidism Social History Smoking Status: Never smoker second hand exposure: No alcohol intake: never substance use type: does not use Smoking Status: Never smoker alcohol intake frequency: 0-2 drinks per day Substance Use Type: does not use Exam Narrative Exam Narrative: GEN: well nourished, well appearing the female, alert and oriented x 3, patient appears to be in mild distress. HEENT: Atraumatic, pupils are equal round reactive to light, extraocular movements are intact, nares are clear, TMs are clear with no fluid, there is no conjunctival pallor. Throat is clear without any exudates, erythema, tonsillar enlargement or uvular deviation, patient has healing incision of the left upper lip, well-aligned, vermilion border appears well aligned. NEURO:CN 2-12 intact, sensation normal SKIN: Healing incision which is clean dry and intact and appears to be healing well. Initial Vital Signs Initial Vital Signs: Vital Signs Temperature 98.1 F 07/13/21 11:22 Pulse Rate 64 07/13/21 11:22 Respiratory Rate 20 07/13/21 11:22 Pulse Oximetry 99 07/13/21 11:22 Course Vital Signs Vital signs: Vital Signs - 8 hr 07/13/21 11:22 Temperature 98.1 F Pulse Rate 64 Respiratory Rate 20 Pulse Oximetry 99 MDM - Recheck/Abnormal Lab/Rx MDM Narrative Medical decision making narrative: Sutures removed in the department. Skin appears to be healing quite well. Reviewed skin care changes including protecting from sun to prevent pigment changes. Moisturizer and sunscreen. Patient defers any paperwork. Discharge Plan Departure Patient Disposition: Home Clinical Impression: Encounter for removal of sutures Instructions: DI for Suture Removal Activity Restrictions/Additional Instructions: Wound Care: Keep wound(s) clean and dry. Wash daily with soap and water only. I would recommend sunscreen, protective clothing to prevent pigment changes. Return if fever greater than 100.4 Fahrenheit, increased swelling, increasing pain or worsening symptoms such as increased discharge or spreading redness. Prescriptions: No Action thyroid (pork) [[place] Thyroid] 60 mg tablet See Rx Instructions .ROUTE .COMPLEX Qty: 60 0RF Dose Instruction: TAKE 2 TABLETS BY MOUTH EVERY DAY (THIS IS CHANGE IN DOSE) Rx Instructions: TAKE 2 TABLETS BY MOUTH EVERY DAY azithromycin 250 mg tablet See Rx Instructions .ROUTE .COMPLEX Qty: 6 0RF Rx Instructions: For 250 mg dose pack: take 500 mg today (day 1), then 250 mg for 4 days (days 2-5)
== END 2021-07-13 11:54 | disposition home or self-care (01) ==
PROVIDERS: Emergency Provider Emergency Medicine
DX: Z48.02 Encounter for removal of sutures (principal)
CPT/HCPCS: 99281

== ENCOUNTER → 2024-11-04 10:03 | Outpatient (CLI) | payer BC, SELFPAY ==
[2024-11-04 12:13] LABS: Specimen Label KIT TEST
== END ==
PROVIDERS: Visit Provider Family Medicine
DX: E07.9 Disorder of thyroid, unspecified (principal)
CPT/HCPCS: 36415